=== PATIENT | male | born 1985 | race African-American/Black ===

== ENCOUNTER 2017-01-13 09:37 | Emergency (ER) | payer OTHER ==
[~2017-01-13] VITALS: Ht 182.9 cm; Wt 74.8 kg
[2017-01-13] MEDS ORDERED: KETOROLAC 30 MG/ML VIAL (J1885) IV ONE (10:00)
--- NOTE | 2017-01-13 11:20 | REP ---
Clinical: Chest pain. Technique: PA and lateral. Comparison: None. Findings: Mediastinum and cardiac silhouette are normal. Lateral view suggests posterior right lower lobe infiltrate and should be correlated with auscultation. No effusion. No pneumothorax. Skeletal structures intact. Impression: Lateral view suggests right posterior basilar infiltrate. Signed by Quintin Diaz MD 01/13/2017 11:11 A
[2017-01-13] MEDS ORDERED: ZITHTAB PO (11:47)
[2017-01-13] MEDS ORDERED: NAPR500T PO (11:47)
[2017-01-13 11:55] VITALS: BP 122/56
--- NOTE | 2017-01-14 21:24 | ECGEPIP ---
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
== END 2017-01-13 12:03 | disposition home or self-care (01) ==
LOC: M ED 10:25
DX: J18.9 Pneumonia, unspecified organism (principal)
CPT/HCPCS: 71020; 85379; 93005; 96374; 99283; J1885